=== PATIENT | female | born 1975 | race Caucasian/White ===

== ENCOUNTER → 2020-08-01 12:33 | Outpatient (REF) | payer MEDICARE, MEDICAID, SELFPAY ==
--- NOTE | 2020-08-01 13:00 | HM_ITS ---
TEST PERFORMED: Cardiac event monitoring. REQUESTING PHYSICIAN: Dr. Waite. INDICATION: Palpitations. ENROLLMENT PERIOD: 08/01/2020 to 08/07/2020 - 6 days. FINDINGS: In the above monitoring period of only 6 days, the underlying rhythm was sinus. The ventricular rate has been reported as 106/min at baseline. Otherwise in this period of time, there were no supraventricular or ventricular arrhythmias or any other abnormalities noted. No patient symptoms noted. CONCLUSION: Overall, unremarkable event monitoring for 6 days without any documented cardiac arrhythmias. James Latham MD HS/MODL / [id number]
== END ==
LOC: HO.CARD 12:33
PROVIDERS: Visit Provider Internal Medicine Cardiovascular Disease
DX: R00.2 Palpitations (principal)
CPT/HCPCS: 93225; 93270

== ENCOUNTER → 2020-08-22 08:11 | Outpatient (BNVA) | payer MEDICARE, MEDICAID, SELFPAY | PROVIDERS: PCP Internal Medicine Cardiovascular Disease; Visit Provider Physician Assistant | DX: Z76.89 Persons encountering health services in other specified circumstances (principal) ==

== ENCOUNTER → 2020-12-01 08:28 | Outpatient (BNVA) | payer MEDICARE, MEDICAID, SELFPAY | PROVIDERS: PCP Internal Medicine Cardiovascular Disease; Visit Provider Surgery | DX: E66.3 Overweight (principal); Z98.84 Bariatric surgery status | CPT/HCPCS: 99212 ==

== ENCOUNTER → 2022-04-24 12:27 | Outpatient (BNVA) | payer MEDICARE, MEDICAID, SELFPAY | PROVIDERS: PCP Nurse Practitioner Adult Health; Visit Provider Physician Assistant Surgical | DX: E66.9 Obesity, unspecified (principal); Z68.32 Body mass index [BMI] 32.0-32.9, adult; Z98.84 Bariatric surgery status | CPT/HCPCS: 99212 ==

== ENCOUNTER 2023-05-28 11:37 | Outpatient (AMB) | payer MEDICARE, MEDICAID, SELFPAY ==
--- NOTE | 2023-05-28 12:07 | MHC.OFFWIV ---
Intake Vital Signs 05/28/23 12:12 Weight 212 lb BP 124/82 Blood Pressure Location Lt brachial Position Sitting Pulse 60 Pulse Source Pulse Oximeter Pulse Oximetry (%) 98 Oxygen Delivery Method Room Air Intake Visit Reasons: EST/Uti Intake Note: Patient here for burning when urinating, frequent urination, left flank pain, cloudy urine and itchiness. Patient Tobacco Use Status: Current everyday Tobacco user Allergies hydrocodone [From VICODIN] Allergy (Unknown, Unverified 05/28/23 12:23) ITCHY, WIRED oxycodone [From PERCOCET] Allergy (Unknown, Unverified 05/28/23 12:23) ITCHING. WIRED acetaminophen [ACETAMINOPHEN] Adverse Reaction (Unknown, Unverified 05/28/23 12:23) INTERACTS WITH LITHIUM hazelnut Allergy (Unknown, Uncoded 05/28/23 12:23) unknown mushrooms Allergy (Unknown, Uncoded 05/28/23 12:23) unknown Vicodin Allergy (Unknown, Uncoded 05/28/23 12:23) unknown Medication List - Last Reconciled 05/28/23 by Anthony Allen MD cyclobenzaprine 10 mg PO BEDTIME PRN estradiol 2 mg PO DAILY famotidine 20 mg PO BID lithium carbonate ER 300 mg PO DAILY nystatin topical BID pantoprazole 40 mg PO DAILY ropinirole 3 mg PO DAILY sulfamethoxazole-trimethoprim 800-160 mg (Bactrim DS) 1 tab PO BID 5 days tramadol 50 mg PO DAILY PRN trazodone 100 mg PO BEDTIME PRN trazodone 25 mg PO BEDTIME Do you need a note to return to daycare/school/sports/work: No HPI EST/Uti HPI Details Patient presents for a sick visit. Reports symptoms of increased frequency of urination, burning on urination and discomfort in the suprapubic area. Symptoms started in the past few days. No fevers or chills. No nausea or vomiting. [facility] Medical History Anxiety Bipolar disorder IBS (irritable bowel syndrome) Malabsorption due to intolerance, not elsewhere classified Morbid obesity Overweight (BMI 25.0-29.9) PTSD (post-traumatic stress disorder) Surgical History H/O lateral meniscus repair of right knee History of ankle surgery History of repair of anterior cruciate ligament of right knee History of robot-assisted laparoscopic hysterectomy S/P laparoscopic cholecystectomy S/P laparoscopic sleeve gastrectomy Family History Father IBS (irritable bowel syndrome) Diabetes Obesity Mother Obesity Thyroid disease Brother No problems noted. Paternal Grandfather No problems noted. Paternal Grandmother No problems noted. Maternal Grandfather No problems noted. Maternal Grandmother No problems noted. Maternal Aunt No problems noted. Social History (Updated 04/24/22 @ 13:06 by Amelia Galaviz CMA) Alcohol intake: current Alcohol intake frequency: holidays/special occasions only Patient Tobacco Use Status: Current everyday Tobacco user Cigarette Packs Per Day: 1 Physical Exam Vital Signs: Last Vital Signs Pulse 60 05/28/23 12:12 BP 124/82 05/28/23 12:12 Pulse Ox 98 05/28/23 12:12 Oxygen Delivery Method Room Air 05/28/23 12:12 General: Yes no CVA tenderness Back/Spine/Pelvis Back: no CVA tenderness Results AMB Urinalysis, Automated UA Leukoctes 500 Javier/uL Last Edit by Matty Medina CMA on 05/28/23 12:25 UA Nitrite Negative Last Edit by Matty Medina CMA on 05/28/23 12:25 UA Urobilinogen 0.2 mg/dL Last Edit by Matty Medina CMA on 05/28/23 12:25 UA Protein 0 mg/dL Last Edit by Matty Medina CMA on 05/28/23 12:25 UA pH 6.0 Last Edit by Matty Medina CMA on 05/28/23 12:25 UA Blood 0 Kvng/uL Last Edit by Matty Medina CMA on 05/28/23 12:25 UA Specific [place] 1.010 Last Edit by Matty Medina CMA on 05/28/23 12:25 UA Ketone Negative Last Edit by Matty Medina CMA on 05/28/23 12:25 UA Bilirubin 0 mg/dL Last Edit by Matty Medina CMA on 05/28/23 12:25 UA Glucose 0 mg/dL Last Edit by Matty Medina CMA on 05/28/23 12:25 Assessment & Plan Assessment & Plan (1) Urinary tract infection: Code(s): N39.0 - Urinary tract infection, site not specified Plan: Take antibiotics and Pyridium as directed. Increase fluid intake. If symptoms of burning persist, new onset of fever or lower back pain, to follow-up at the clinic. Orders: Orders AMB Urinalysis Automated Today Z13.9 - Encounter for screening, unspecified Coding Level of Care Code Est Pt Level 3 (33889) Diagnoses Urinary tract infection N39.0
[2023-05-28 12:12] VITALS: BP 124/82; PULSE 60; O2SAT 98
== END 2023-05-28 12:41 | disposition home or self-care (01) ==
PROVIDERS: PCP Nurse Practitioner Adult Health; Visit Provider Internal Medicine
DX: N39.0 Urinary tract infection, site not specified (principal); R30.9 Painful micturition, unspecified
CPT/HCPCS: 81003; 99213